=== PATIENT | female | born 1990 | race Asian ===

== ENCOUNTER 2022-12-07 23:06 | Inpatient (IN) | payer OTHER, SELFPAY ==
[2022-12-07 23:32] VITALS: BP 118/58
--- NOTE | 2022-12-07 23:45 | P.HPOB_ITS ---
OB HPI Date/Time Date of admission: 12/07/22 Date Patient Seen: 12/07/22 Time Patient Seen: 23:45 History of Present Condition Chief complaint: Labor : 3 Para: 1 Estimated Date of Delivery: 12/19/22 Estimated Gestational Age (weeks): 38.3 Narrative: Romina Sal is a 32 year old female @ 38wks 3 days by LMP, concordant with 11wk US. Noticed SROM today at 1330 and was seen in clinic with clear fluid noted and reactive NST. At that time, Romina was feeling occasional, mild cramping and chose expectant management of PROM and went home. Contractions steadily increased in frequency and intensity and have been strong for about 1 hour now. Continued leaking of clear fluid. no vaginal bleeding. +FM. U ncomplicated care w/ CNMs. Desires epidural. History of Present care: good care, initiated at week # (11), number of visits (8) and pounds weight gain (47) Dating criteria: LMP confirmed by 1st trimester US Ultrasounds: normal mid trimester US Obstetrical complications: none Medical complications: none Preadmission Labs Blood type: O (+) positive -: Antibody screen: negative, GBS status: negative, HBsAG: negative, HIV: negative and RPR/VDLR: negative -: Chlamydia screen: not detected and Gonorrhea screen: not detected -: Rubella: immune and Varicella: immune HCT: 39.3 HCAB: negative Cell-free DNA: Negative/ Female 1 hr GTT: 132 Prior (ies) History: (vaginal delivery) Santi Lo Florez 05/[birth year]21 38 0 14 hr2 hrEpidural2?Male8 lbs 9 oz Other [facility] Notes:I lost a lot of blood when my baby was delivered, but did not need a blood transfusion. 2SAB (miscarriage) Evaluation Evaluation Baseline heart rate: 125 Variability: Moderate (11-25) monitor accelerations: Present Monitor Decelerations: Absent Contraction Frequency (minutes): 2 Uterine Contraction Intensity: Moderate Status: Category l Dilation (cm): 7 Effacement (%): 100 station: -2 Position of cervix: mid Consistency: soft [facility] Surgical History (Updated 12/07/22 @ 23:54 by Kenia Nichole CNM) History of photorefractive keratectomy Family History (Updated 12/07/22 @ 23:53 by Kenia Nichole CNM) Mother Heart disease Social History (Updated 12/07/22 @ 23:54 by Kenia Nichole CNM) marital status: number of children: 1 household members: spouse and children lives independently: Yes housing: apartment education level: college Meds Home Medications and Allergies Allergies Allergy/AdvReac Type Severity Reaction Status Date / Time No Known Drug Allergies Allergy Verified 12/07/22 23:34 Review of Systems Review of Systems ROS: Yes All systems reviewed with the patient and are negative except as otherwise documented OB Exam Vital signs Blood Pressure: 118/58 Pulse Rate: 77 Temperature: 36.3 F Presentation: vertex Assessment and Plan Assessment and Plan Assessment and Plan narrative: A: Term primipara Active labor SROM x 10.5 hours without sx of infection No indication for GBS prophylaxis Rh POSITIVE Cat I FHR P: Admit, routine orders. Continuous EFM. Epidural NEELA. Anticipate NSVB. Reassess in 4 hours or sooner, PRN second stage.
[2022-12-07 23:57] VITALS: BP 118/58; PULSE 77; TEMP 2.4; TEMP 36.3
[2022-12-08 00:04] LABS: Add Manual Diff / Slide Review NO; Basophils Absolute Auto 0 /uL (0-100); Basophils Percent Auto 0.3 % (0-2); Eosinophils Absolute Auto 100 /uL (0-450); Eosinophils Percent Auto 1.4 % (2-4); Hematocrit 40.6 % (36-46); Hemoglobin 13.7 g/dL (12.0-16.0); Lymphocytes Absolute Auto 2700 /uL (1100-4500); Lymphocytes Percent Auto 25.9 % (25-40); Mean Corpuscular HGB Conc 33.8 % (30-36); Mean Corpuscular Hemoglobin 30.7 PG (26-34); Mean Corpuscular Volume 91.1 fL (80-100); Monocytes Absolute Auto 700 /uL (0-900); Monocytes Percent Auto 7.2 % (3-14); Neutrophils Absolute Auto 6800 /uL (1500-7000); Neutrophils Percent Auto 65.2 % (50-75); Platelet Count 244 X10^3/uL (150-400); Red Blood Cell Count 4.46 X10^6/uL (4.0-5.2); White Blood Cell Count 10.4 X10^3/uL (4.5-11.0)
[2022-12-08] MEDS: fentaNYL 100 MCG/2 ML INJ (02:30)
[2022-12-08] MEDS: OXYTOCIN PREMIX 30 UNIT/500 ML PLAST..BAG 400 UNIT IV (04:16)
[2022-12-08] MEDS: miSOPROStoL 200 MCG TABLET 400 MCG SL (04:25)
[2022-12-08] MEDS: TRANEXAMIC ACID 1,000 MG in SODIUM CHLORIDE 0.9% 100 ML 200 MG IV (04:38)
--- NOTE | 2022-12-08 04:56 | PM.OBPRVD ---
Labor & Delivery Delivery date: 12/08/22 Intrapartal Events: None Cervical ripening method: none Induction method: none Delivery monitor: external FHT Route of delivery: Episiotomy description: None L&D Laceration Description: Perineal - 1st Degree Delivery repair: vicryl Quantitative Blood Loss: 600 Anesthesia Type: Epidural Narrative: Romina labored well to complete with adequate epidural anesthesia. Amniotic fluid remained clear throughout labor. Primarily Cat I FHR. Began pushing at 0350 in left tilt semi-Sung's position. Warm compresses applied. Pushed very well to with encouragement and coaching. Encouraged smaller pushes at to allow for perineal tissue stretching. Baby's head delivered in vertex position, restituted to SUNITHA. Delivered through single loose nuchal cord. Shoulders delivered with next push and baby's body delivered through nuchal cord with somersaulting motion. of healthy female Ofelia at 0410. Baby cried spontaneously and was placed on maternal abdomen for drying and skin to skin. Active management of third stage of labor with 30 units pitocin in 500 mL LR started at 400 mL/hr. Brisk uterine bleeding noted and 400 mg misoprostol given buccally and pitocin increased to a bolus. Placenta delivered Shultze and intact with gentle cord traction, 3 vessel, marginal cord insertion noted on inspection. Crowell bleeding noted after placenta. Fundus boggy and massaged to firm. Bleeding slowed. TXA ordered and given. Cord clamped by SNM and cut by FOB. Cord blood collected. 1st degree perineal laceration noted and repaired with 3-0 vicryl. Crowell bleeding noted again, fundus massaged to firm and bleeding slowed. QBL 600 mLs. Laps and sharps count was correct. Romina and baby Ofelia left in stable condition. Baby 1: gender: Female Presentation: vertex Position: Right Occiput Anterior Placenta delivery description: Spontaneous Cord Vessel Description: 3 Vessels, Nuchal Cord, Loose and Around Body x1 score (1 min): 9 score (5 min): 9 weight: 3.464 kg Plan for aftercare: Routine care
[2022-12-08] MEDS: FERROUS SULFATE 325 MG TABLET PO (08:50)
[2022-12-08] MEDS: DOCUSATE 100 MG CAPSULE PO (08:50)
--- NOTE | 2022-12-09 08:25 | PM.OBDS.1 ---
Discharge Providers Provider Date of admission: 12/07/22 23:06 Discharge Date: 12/09/22 Primary care physician: MD Maame Discharge provider: Gena Nielson CNM, ARNP Summary Hospital Course Date Patient Seen: 12/09/22 Time Patient Seen: 07:00 Diagnoses: Z39.1 Hospital Course: PROM followed by spontaneous labor. Epidural and normal labor progress. NSVB of baby girl. Normal course of G2 now P2. Peripartum Data Infant Delivery Method: Natural Vaginal Laceration Description: Periurethral - 1st Degree and Perineal - 1st Degree Episiotomy description: None Procedures: NSVB 1: Gender: Female Disposition of : home Discharge Diagnosis (1) Encounter for care and examination of lactating mother: Status: Acute (2) Encounter for supervision of other normal , third trimester: Status: Acute (3) (normal spontaneous vaginal delivery): Start Date: 12/08/22 Status: Acute Status at Discharge Cognitive/behavioral status at discharge: oriented and at baseline, oriented Functional status at discharge: independent ambulation Overall status at discharge: patient is back to baseline Time Spent with Patient Time attestation: Total time spent providing and/or coordinating discharge services: 20 minutes Time spent: Less than 30 minutes Specific discharge activities: chavo-care, monitor bleeding Objective Labs 12/07/22 23:45 Exam Vital Signs (past 8 hours): BP 106/65; HR 72: RR 16; Temp 97.4F; O2 99% Const General: healthy appearing and comfortable Resp Effort & Inspection: normal respiratory effort Cardio Rate: regular rate GI Other: Fundus U/2, scant bleeding Skin General: no rashes or lesions noted Neuro General: patient alert, patient awake and patient oriented x3 Extrem Right lower extremity: normal to inspection Left lower extremity: normal to inspection Psych Appearance: grossly normal Mental Status: mental status grossly normal Speech and Movement: speech and movement normal Mood: congruent mood Discharge Plan Discharge Plan Patient Disposition: Home Provider Discharge Comment: s/p NSVB Discharge orders & Medications Prescriptions: Continued Vits W/Ca,Fe,F.A. 1 tab PO DAILY Follow up/Referrals: Janeth,DoctorMD [Primary Care Provider] - 6 Weeks (Please check your email for your follow-up appointments that will be scheduled with Gena. Please call [facility] with any questions. ) Diet/Activity/Treatments Diet: Diet as Tolerated and Regular Oxygen: room air Skin/Wound/Dressing Care Skin care: as usual Report to your healthcare provider any signs of infection, such as:: chills, fever, night sweats, increased pain and unusual redness Dressing: n/a Other wound treatment: chavo-care as discussed Visit Report/Discharge Packet Stand Alone Forms: Patient Portal/API, Stroke Signs & Symptoms Discharge Data Primary Care Provider: Miscellaneous,Doctor
[2022-12-09] MEDS: PRENATAL VIT,CALC/IRON/FOLIC 1 TABLET 1 TAB PO (09:05)
[2022-12-09] MEDS: DOCUSATE 100 MG CAPSULE PO (09:05)
[2022-12-09] MEDS: FERROUS SULFATE 325 MG TABLET PO (09:05)
[2022-12-09 09:42] VITALS: BP 98/69; PULSE 65; RESP 16; TEMP 36.3
== END 2022-12-09 11:42 | disposition home or self-care (01) | DRG 807 ==
PROVIDERS: Admitting Provider Nurse Practitioner Obstetrics & Gynecology; Referring Provider Nurse Practitioner Obstetrics & Gynecology; Visit Provider Nurse Practitioner Obstetrics & Gynecology
DX: O42.02 Full-term premature rupture of membranes, onset of labor within 24 hours of rupture (principal); Z37.0 Single live birth; Z3A.38 38 weeks gestation of pregnancy; O70.0 First degree perineal laceration during delivery
CPT/HCPCS: 59050; 85025; 86850; 86900; 86901; G0379; J2590; J3010; S0191